=== PATIENT | female | born 1985 | race Caucasian/White ===

== ENCOUNTER 2017-05-26 11:41 | Emergency (ER) | payer MEDICAID ==
--- NOTE | 2017-05-26 12:34 | PD ---
HPI Chief Complaint NST Date Seen: May 26, 2017 Travel History International Travel<30 Days: No Contact w/Intl Traveler<30Days: No Known Affected Area: No History of Present Illness HPI 31 yo @ 32w1d with [facility] 07/21/2017. care in [place], [place]. Other than drug abuse, no problems with the . Patient here for NST, -well being check before entering detox program at [facility]. Patient last used Dilaudid this morning. She is here with her mother. History Past Medical History Narrative Medical Polysubstance Abuse Obstetric History Obstetric History Past Surgical History Surgical History: No Previous Surgery Family History Family History: Negative Social History Alcohol Use: No Tobacco Use: No Substance Abuse: Yes Allergies-Medications (Allergen,Severity, Reaction): Coded Allergies: No Known Allergies (Unverified , 05/26/17) Review of Systems Except as stated in HPI: all other systems reviewed are Neg Physical Exam Narrative GENERAL: Well-nourished, well-developed patient. NAD TOCO: No UC FHT's: Category: I Baseline: 145 Reactive: + Variability: mod Decels: [-] NEUROLOGICAL: Awake and alert. Normal speech. Data Data Vital Signs Reviewed: Yes Orders Orders Vital Signs (Adult) .ON ADMISSION (05/26/17 12:31) ^ Labor Status (05/26/17 12:31) ^ Non Stress Test (05/26/17 12:31) MDM Narrative Course / MDM 32 weeks Polysubstance abuse in NST reactive Will be entering [facility] today Information given on local OBGYN clinics Discussed Project Warm Diagnosis Diagnosis: Primary Impression: NST (non-stress test) reactive Additional Impressions: 32 weeks gestation of High risk due to maternal drug abuse in third trimester Disposition: DISCHARGE HOME Condition: Good Liana Casarez MD May 26, 2017 12:34
== END 2017-05-26 12:42 | disposition home or self-care (01) ==
LOC: HOBED 11:41
DX: O99.323 Drug use complicating pregnancy, third trimester (principal); F19.10 Other psychoactive substance abuse, uncomplicated; Z3A.32 32 weeks gestation of pregnancy
CPT/HCPCS: 59025